=== PATIENT | male | born 1975 | race African-American/Black ===

== ENCOUNTER → 2016-12-01 | Outpatient (CLI) | payer SELFPAY | LOC: HEDF 01:40 | DX: S61.412A Laceration without foreign body of left hand, initial encounter (principal); S51.801A Unspecified open wound of right forearm, initial encounter; S41.101A Unspecified open wound of right upper arm, initial encounter; W34.00XA Accidental discharge from unspecified firearms or gun, initial encounter; X95.9XXA Assault by unspecified firearm discharge, initial encounter | CPT/HCPCS: A0431; A0436 ==